=== PATIENT | female | born 1945 | race Caucasian/White ===

== ENCOUNTER 2020-12-19 09:59 | Day surgery (SDC) | payer MEDICARE ==
[~2020-12-19] VITALS: Ht 149.9 cm; Wt 98.2 kg
[2020-12-19] VITALS (16 sets, daily range): BP systolic 130–193; BP diastolic 57–90; PULSE 54–69; TEMP 98
[2020-12-19] MEDS ORDERED: NEURONTIN300 MG/CAP PO (10:29)
[2020-12-19] MEDS ORDERED: VICTOZA6 MG/ML SQ (10:29)
[2020-12-19] MEDS ORDERED: ULTRAM 50MG TAB50 MG PO (10:30)
[2020-12-19] MEDS ORDERED: ELIQUIS 2.5 PO (10:30)
[2020-12-19] MEDS ORDERED: ZESTRIL 10MG10 MG PO (10:30)
[2020-12-19] MEDS ORDERED: COREG12.5 MG PO (10:30)
[2020-12-19] MEDS ORDERED: LIPITOR 40MG TA40 MG PO (10:30)
[2020-12-19] MEDS ORDERED: DEMADEX 20MG20 M1 PO (10:31)
[2020-12-19] MEDS ORDERED: TRADJENTA5 MG PO (10:31)
[2020-12-19] MEDS ORDERED: TRELEGY ELLIPT1 EACH IH (10:31)
[2020-12-19] MEDS ORDERED: BREZTRI AEROS10.7 GM IH (10:31)
[2020-12-19] MEDS ORDERED: TYLENOL 325MG325 MG PO (10:32)
[2020-12-19] MEDS ORDERED: VTAMINC250TA PO (10:32)
[2020-12-19] MEDS ORDERED: HAIRSKINNAILS PO (10:32)
[2020-12-19] MEDS ORDERED: ZAROXOLYN 2.52.5 MG PO (10:33)
[2020-12-19 10:56] LABS: PROTHROMBIN TIME 10.9 SECONDS (9.7-12.8)
[2020-12-19 10:58] LABS: CREATININE, serum 1.23 (0.52-1.25); HEMOGLOBIN 10.7 g/dl (12.5-16.0); MEAN CELL VOLUME 95 fl (80.0-100.0); MEAN CORPUSCULAR HEMOGLOBIN 31 pg (27.0-31.0); MEAN CORPUSCULAR HGB CONC 33 g/dl (33.0-37.0); MEAN PLATELET VOLUME 9.6 fl (7.4-10.4); PLATELET COUNT 222 K/mm3 (130-400); POTASSIUM 4.2 mmol/L (3.4-5.0); RED BLOOD COUNT 3.44 M/mm3 (4.10-5.30); REDCELL DISTRIBUTION WIDTH-CV 14.6 % (11.5-14.5)
[2020-12-19 10:59] LABS: PARTIAL THROMBOPLASTIN TIME 27.5 SECONDS (26.0-37.0)
[2020-12-19 11:13] LABS: HEMATOCRIT 32.7 % (37.0-47.0)
--- NOTE | 2020-12-19 12:17 | NUR ---
SEE MERGE FOR ALL MEDICATION ADMINISTRATION TIMES, INTRA AND POST SEDATION ASSESMENTS
--- NOTE | 2020-12-19 13:40 | NUR ---
O2 at 3L/min applied via NC. Pt states she uses Bipap with oxygen at home while sleeping. While sleeping following procdure, pt having brief moments of desaturation down to mid 80s, quickly recovers to 90-93% while awake. Sats improved with oxygen administration. Rt groin venous puncture site has small hematoma, pressure held for 5 mins with massage of area. Blood on dressing was marked on pt's return from laboratory cureman, and has not increased in size. Pedal pulse remain strong and easily palpated.
--- NOTE | 2020-12-19 13:55 | NUR ---
Rt groin site remains soft to palpation, no additional blood noted on dressing.
--- NOTE | 2020-12-19 15:55 | NUR ---
Rt venous puncture site remains soft to palpation, no further bleeding noted on dressing. New dressing applied at this time with folded 4x4 and tegaderm. Air was removed from TR band in 2 ml increments, no bleeding from rt radial puncture site. Site is dressed with 2x2 and bandaid. Pt has been in sinus rhythm on shelter monitor since return from slab worker. She is aware that Dr. Bailon ordered extended bedrest time due to oozing at venous puncture site. Call light in reach and niece remains at bedside.
--- NOTE | 2020-12-19 17:35 | NUR ---
4 hour bedrest period completed with rt groin area remaining unchanged. Pt ambulated to restroom with steady gait. With activity reported sensation of "fullness and pressure" to rt upper thigh and groin area. Upon return to room, pt is asked to lay back in bed to reevaluate area. Area appears more swollen and tissue more full, small hematoma palpated under dressing, and small area blood noted on dressing. Manual pressure applied. DALIA Blankenship from shift lab technician comes to assess site, and Dr Bailon is notified.
--- NOTE | 2020-12-19 18:00 | NUR ---
Report given to DALIA Shrestha. She will monitor pt for remainer of additional bedrest and obs period. Pt resting comfortably in bed. Call light in reach.
--- NOTE | 2020-12-19 19:24 | NUR ---
Ambulated with cane and standby assist around nurses station. Right groin site remains soft and CD&I. INT discontinued intact.
--- NOTE | 2020-12-19 19:39 | NUR ---
No questions from Pavel GÓMEZfinancial intern instructions. Transferred to private car by [employer]
== END 2020-12-19 19:40 | disposition home or self-care (01) ==
LOC: COL.CAR 09:59
PROVIDERS: Internal Medicine Cardiovascular Disease
DX: I27.20 Pulmonary hypertension, unspecified (principal); I07.1 Rheumatic tricuspid insufficiency; N19 Unspecified kidney failure; I48.20 Chronic atrial fibrillation, unspecified; I50.9 Heart failure, unspecified
CPT/HCPCS: C1769; C1894; J1644; J2250; J3010; Q9967

== ENCOUNTER 2021-05-30 07:21 | Day surgery (SDC) | payer MEDICARE ==
[~2021-05-30] VITALS: Ht 149.9 cm; Wt 96.6 kg
[2021-05-30] VITALS (7 sets, daily range): BP systolic 165–220; BP diastolic 58–89; PULSE 73–86; TEMP 98.2–98.3
[~2021-05-30 07:21] MED LIST: BREZTRI AEROS10.7 GM IH; COREG12.5 MG PO; DEMADEX 20MG20 M1 PO; ELIQUIS 2.5 PO; HAIRSKINNAILS PO; LIPITOR 40MG TA40 MG PO; NEURONTIN300 MG/CAP PO; TRADJENTA5 MG PO; TRELEGY ELLIPT1 EACH IH; TYLENOL 325MG325 MG PO; ULTRAM 50MG TAB50 MG PO; VICTOZA6 MG/ML SQ; VTAMINC250TA PO; ZAROXOLYN 2.52.5 MG PO; ZESTRIL 10MG10 MG PO
[2021-05-30] MEDS ORDERED: OCUVITE1 TA1 PO (08:57)
[2021-05-30] MEDS ORDERED: TYLENOL PM EXTR1 TA1 PO (08:58)
[2021-05-30] MEDS ORDERED: XALATAN EYE DROPS OD (08:58)
[2021-05-30] MEDS ORDERED: TYLENOL 500MG500 MG PO (08:59)
--- NOTE | 2021-05-30 14:07 | NUR ---
PATIENT CAME BACK FROM PACU VIA CART. PATIENT MOANING IN PAIN, STATES DUBOIS HURTS. INCISION CLEAN DRY INTACT TO RIGHT AXILLA. IV INFUSING. NIECE AT BEDSIDE. STATES SHE JUST WANTS ICE CHIPS. 1414 PATIENT REMAINS IN PAIN TO RIGHT DUBOIS. PER RE GÓMEZ, MADE DR. TUCKER AWARE, ORDERS PLACED FOR DOPPLER OF LEG. 1440- DR. BONILLA AT BEDSIDE TO SPEAK WITH PATIENT. ULTRASOUND AT BEDSIDE. 1515- PATIENT UP TO BATHROOM, URINATED WITHOUT DIFFICULTY. WILL CONTINUE TO MONITOR.
--- NOTE | 2021-05-30 15:45 | NUR ---
VITAL SIGNS WITHIN RANGE. PATIENT STATES SHE WOULD LIKE TO GO HOME AT THIS TIME. IV REMOVED INTACT. PATIENT TO GET DRESSED AT THIS TIME.
--- NOTE | 2021-05-30 16:28 | NUR ---
DISCHARGE INSTRUCTIONS REVIEWED WITH PATIENT AND FAMILY. ALL QUESTIONS ANSWERED. PATIENT BROUGHT DOWN TO LOBBY VIA WHEEL CHAIR. NIECE TO DRIVE PATIENT HOME. ALL BELONGINGS IN HAND.
== END 2021-05-30 16:28 | disposition home or self-care (01) ==
LOC: SDCO 07:21
DX: C50.411 Malignant neoplasm of upper-outer quadrant of right female breast (principal); E11.9 Type 2 diabetes mellitus without complications; E78.00 Pure hypercholesterolemia, unspecified; G47.30 Sleep apnea, unspecified; I50.9 Heart failure, unspecified; I11.0 Hypertensive heart disease with heart failure; I48.91 Unspecified atrial fibrillation; I27.20 Pulmonary hypertension, unspecified; G47.33 Obstructive sleep apnea (adult) (pediatric); M19.90 Unspecified osteoarthritis, unspecified site; F41.9 Anxiety disorder, unspecified; Z90.710 Acquired absence of both cervix and uterus; Z99.89 Dependence on other enabling machines and devices; Z79.899 Other long term (current) drug therapy; Z79.01 Long term (current) use of anticoagulants; Z79.891 Long term (current) use of opiate analgesic
CPT/HCPCS: A9541; J0690; J1885; J2250; J2405; J2704; J2795; J7030